=== PATIENT | female | born 1995 | race Caucasian/White ===

== ENCOUNTER 2021-12-07 21:45 | Emergency (ER) | payer SELFPAY ==
[2021-12-07] MEDS ORDERED: Lorazepam 2 MG/ML VIAL ONE (22:44)
[2021-12-07] MEDS ORDERED: Ondansetron PF 4 MG/2 ML Vial ONE (22:45)
[2021-12-07] MEDS ORDERED: Ondansetron ODT 4 MG TAB ONE (22:55)
[2021-12-07 23:12] LABS: #Monocytes 0.7 10x3/uL (0.0-1.1); #Neutrophils 9.5 10x3/uL (1.5-8.4); %Basophils 0.3 % (0.0-2.0); %Eosinophils 0.4 % (0.0-6.0); %Lymphocytes 5.7 % (18.0-47.0); %Monocytes 6.7 % (0.0-10.0); %Neutrophils 86.4 % (40.0-75.0); Hemoglobin 14.7 g/dL (12.0-15.5); Mean Corpuscular HGB CONC 32.9 g/dL (32.0-36.0); Mean Corpuscular Hemoglobin 28.7 pg (27.0-33.0); Mean Corpuscular Volume 87.1 fl (81.6-98.3); Mean Platelet Volume 9.1 fl (7.4-10.4); Platelet Count 294 10x3/uL (150-450); RBC Distribution Width 12.2 % (11.5-14.5); Red Blood Cell (RBC) Count 5.13 10x6/uL (3.90-5.03)
[2021-12-07 23:25] LABS: BHCG - Serum Negative (NEGATIVE); Pregs Control Background? CLEAR/WHITE (CLR/WHITE); Pregs Control Bar Appear? YES (CONTROL BAR)
[2021-12-07 23:28] LABS: ALT (SGPT) 17 U/L (8-55); AST (SGOT) 16 U/L (5-34); Albumin 4.6 g/dL (3.5-5.0); Alcohol Less than 10 mg/dL (Less than 10); Alkaline Phosphatase 92 U/L (40-110); Anion Gap 17 mmol/L (10-20); BUN (Urea Nitrogen) 10 mg/dL (7.0-18.7); Bilirubin, Total 0.3 mg/dL (0.2-1.2); Calc. Creatinine Clearance 0 mL/min (70-130); Calcium 9.3 mg/dL (7.8-10.44); Carbon Dioxide 20 mmol/L (22-29); Chloride 107 mmol/L (98-107); Globulin 4.1 g/dL (2.4-3.5); Glucose 106 mg/dL (70-105); Potassium 3.7 mmol/L (3.5-5.1); Protein, Total 8.7 g/dL (6.0-8.3); Sodium 140 mmol/L (136-145)
== END 2021-12-07 23:30 | disposition left against medical advice (07) ==
LOC: CSHERS 21:58
DX: U07.1 COVID-19 (principal)
CPT/HCPCS: 80053; 80307; 84484; 84703; 85025; 93005; 93010; 96374; J2060; J2405; Q0162

== ENCOUNTER 2024-01-04 12:05 | Outpatient (CLI) | payer MEDICARE, MEDICAID | END 2024-01-04 12:06 | disposition home or self-care (01) | LOC: CSHRAD 12:05 | PROVIDERS: ATTEND Family Medicine | DX: Z01.818 Encounter for other preprocedural examination (principal); Z72.0 Tobacco use | CPT/HCPCS: 71046 ==